=== PATIENT | female | born 1990 | race Caucasian/White ===

== ENCOUNTER 2016-10-04 18:15 | Emergency (ER) | payer MEDICAID ==
[~2016-10-04] VITALS: Ht 157.5 cm; Wt 55.0 kg
[~2016-10-04 18:15] MED LIST: FERROUS SU325 MG/TAB PO; FLINTSTONES1 CTB PO; FLONASE NASAL S16 GM NS; MOTRIN 600600 MG/TAB PO; NORCO 325 MG-51 TAB PO; PERCOCET 325 MG1 TA2 PO; PRENATAL VITAMI1 TAB PO; PROAIR HFA0.09 MG/AC IH; SALINE NASAL SP45 ML NS; ZITHROMAX Z PA250 MG PO; ZOFRAN 4MG T4 MG/TAB PO; ZOLOFT 50MG50 MG PO; ZOVIRAX400 MG PO
[2016-10-04 18:18] VITALS: TEMP 97.9
[2016-10-04 18:50] LABS: BASO % 0.2 % (0.0-2.0); EOS # 0.1 (0.0-0.7); EOS % 0.7 % (0-4.0); GRAN # 7.2 (1.4-6.5); GRAN % 72.1 % (42.2-75.2); HEMOGLOBIN 12.2 g/dl (12.5-16.0); LYMPH # 2.2 (1.2-3.4); LYMPH % 22.1 % (20.0-51.0); MEAN CELL VOLUME 84 fl (80.0-100.0); MEAN CORPUSCULAR HEMOGLOBIN 28 pg (27.0-31.0); MEAN CORPUSCULAR HGB CONC 34 g/dl (33.0-37.0); MEAN PLATELET VOLUME 11.4 fl (7.4-10.4); MONO # 0.4 (0.1-0.6); MONO % 4.4 % (1.7-9.3); PLATELET COUNT 218 K/mm3 (130-400)
[2016-10-04 18:56] LABS: HEMATOCRIT 36.3 % (37.0-47.0)
[2016-10-04 19:17] LABS: PH 6 (5-8); URINE APPEARANCE Hazy; URINE BACTERIA Rare /hpf; URINE BILIRUBIN Negative (NEGATIVE); URINE BLOOD Negative (NEGATIVE); URINE COLOR Yellow; URINE GLUCOSE 3+ (NEGATIVE); URINE KETONE Trace (NEGATIVE); URINE UROBILINOGEN Negative (NEGATIVE); URINE WBC 0-2 /hpf
[2016-10-04 19:17] LABS: ADJUSTED CALCIUM 10.1 mg/dL (8.4-10.2); ALBUMIN 3.6 gm/dL (3.5-5.0); BILIRUBIN,TOTAL 0.5 mg/dL (0.0-1.0); CALCIUM 9.8 mg/dL (8.4-10.2); CREATININE, serum 0.56 mg/dL (0.52-1.25); POTASSIUM 3.5 mmol/L (3.4-5.0); TOTAL PROTEIN 6.9 gm/dL (6.4-8.2)
[2016-10-04 20:06] VITALS: BP 130/80; PULSE 76
== END 2016-10-04 20:09 | disposition home or self-care (01) ==
LOC: COL.ER 18:15
PROVIDERS: Emergency Medicine
DX: O26.892 Other specified pregnancy related conditions, second trimester (principal); N94.89 Other specified conditions associated with female genital organs and menstrual cycle; O99.332 Smoking (tobacco) complicating pregnancy, second trimester; F17.210 Nicotine dependence, cigarettes, uncomplicated; Z3A.18 18 weeks gestation of pregnancy
CPT/HCPCS: J7030

== ENCOUNTER → 2016-10-21 | Outpatient (CLI) | payer MEDICAID ==
[~2016-10-21] MED LIST changes: +IBU600 MG PO; +MULTI VITAMINS1 TAB PO; +PULMICORT180 MCG/Ac IH
== END ==
LOC: COL.PUL 13:50
DX: R06.02 Shortness of breath (principal); Z87.09 Personal history of other diseases of the respiratory system

== ENCOUNTER 2016-12-02 20:49 | Outpatient (CLI) | payer MEDICAID ==
[~2016-12-02] VITALS: Ht 157.5 cm; Wt 57.3 kg
[~2016-12-02 20:49] MED LIST changes: -IBU600 MG PO; -MULTI VITAMINS1 TAB PO; -PULMICORT180 MCG/Ac IH
[2016-12-02] MEDS ORDERED: PROAIR HFA0.09 MG/AC IH (21:39)
[2016-12-02 21:42] VITALS: BP 108/70; PULSE 101; TEMP 97.8
[2016-12-02 21:50] VITALS: BP 104/59
[2016-12-02 23:07] LABS: BASO % 0.2 % (0.0-2.0); EOS # 0.1 (0.0-0.7); EOS % 0.9 % (0-4.0); GRAN # 7.2 (1.4-6.5); GRAN % 74.8 % (42.2-75.2); HEMATOCRIT 32.4 % (37.0-47.0); HEMOGLOBIN 10.7 g/dl (12.5-16.0); LYMPH # 1.6 (1.2-3.4); LYMPH % 16.9 % (20.0-51.0); MEAN CELL VOLUME 82 fl (80.0-100.0); MEAN CORPUSCULAR HEMOGLOBIN 27 pg (27.0-31.0); MEAN CORPUSCULAR HGB CONC 33 g/dl (33.0-37.0); MEAN PLATELET VOLUME 11.2 fl (7.4-10.4); MONO # 0.6 (0.1-0.6); MONO % 6.5 % (1.7-9.3); PLATELET COUNT 191 K/mm3 (130-400); RED BLOOD COUNT 3.93 M/mm3 (4.10-5.30); REDCELL DISTRIBUTION WIDTH-CV 13.2 % (11.5-14.5); WHITE BLOOD COUNT 9.7 K/mm3 (4.8-10.8)
[2016-12-02 23:17] LABS: ADJUSTED CALCIUM 9.1 mg/dL (8.4-10.2); ALBUMIN 3.2 gm/dL (3.5-5.0); BILIRUBIN,TOTAL 0.6 mg/dL (0.0-1.0); CALCIUM 8.5 mg/dL (8.4-10.2); CREATININE, serum 0.5 mg/dL (0.52-1.25); POTASSIUM 3.6 mmol/L (3.4-5.0); TOTAL PROTEIN 6.4 gm/dL (6.4-8.2)
== END 2016-12-03 00:15 | disposition home or self-care (01) ==
LOC: LDRO 20:49
PROVIDERS: Obstetrics & Gynecology
DX: O26.893 Other specified pregnancy related conditions, third trimester (principal); R10.12 Left upper quadrant pain; O21.0 Mild hyperemesis gravidarum; O99.333 Smoking (tobacco) complicating pregnancy, third trimester; F17.210 Nicotine dependence, cigarettes, uncomplicated; Z3A.28 28 weeks gestation of pregnancy

== ENCOUNTER 2017-01-21 13:24 | Day surgery (SDC) | payer MEDICAID ==
[~2017-01-21] VITALS: Ht 157.6 cm; Wt 62.7 kg
[2017-01-21] MEDS ORDERED: PULMICORT180 MCG/Ac IH (13:56)
[2017-01-21] MEDS ORDERED: MULTI VITAMINS1 TAB PO (13:56)
[2017-01-21 14:04] VITALS: BP 119/59; PULSE 101; TEMP 98.2
[2017-01-21 14:44] LABS: MEAN CELL VOLUME 79 fl (80.0-100.0); MEAN CORPUSCULAR HGB CONC 32 g/dl (33.0-37.0); MEAN PLATELET VOLUME 11.9 fl (7.4-10.4); PLATELET COUNT 196 K/mm3 (130-400); RED BLOOD COUNT 3.85 M/mm3 (4.10-5.30); REDCELL DISTRIBUTION WIDTH-CV 14.1 % (11.5-14.5); WHITE BLOOD COUNT 10.6 K/mm3 (4.8-10.8)
[2017-01-21 14:55] LABS: HEMATOCRIT 30.3 % (37.0-47.0); HEMOGLOBIN 9.6 g/dl (12.5-16.0); MEAN CORPUSCULAR HEMOGLOBIN 25 pg (27.0-31.0)
== END 2017-01-21 16:24 | disposition home or self-care (01) ==
LOC: COL.CAR 13:24
PROVIDERS: Internal Medicine Interventional Cardiology
DX: O99.413 Diseases of the circulatory system complicating pregnancy, third trimester (principal); Z3A.35 35 weeks gestation of pregnancy; R55 Syncope and collapse
CPT/HCPCS: C1764

== ENCOUNTER 2017-02-16 15:54 | Inpatient (IN) | payer MEDICAID ==
[~2017-02-16] VITALS: Ht 152.4 cm; Wt 63.2 kg
[~2017-02-16 15:54] MED LIST changes: +MULTI VITAMINS1 TAB PO; +PULMICORT180 MCG/Ac IH
[2017-02-24] VITALS (11 sets, daily range): BP systolic 109–140; BP diastolic 58–85; PULSE 64–89; TEMP 97.8–98.2
[2017-02-24 12:39] LABS: BASO % 0.3 % (0.0-2.0); EOS # 0.1 (0.0-0.7); EOS % 0.5 % (0-4.0); GRAN # 9.5 (1.4-6.5); GRAN % 73.6 % (42.2-75.2); LYMPH # 2.4 (1.2-3.4); LYMPH % 18.5 % (20.0-51.0); MEAN CELL VOLUME 74 fl (80.0-100.0); MEAN CORPUSCULAR HGB CONC 31 g/dl (33.0-37.0); MEAN PLATELET VOLUME 12.1 fl (7.4-10.4); MONO # 0.8 (0.1-0.6); MONO % 6.2 % (1.7-9.3); PLATELET COUNT 179 K/mm3 (130-400); RED BLOOD COUNT 4.51 M/mm3 (4.10-5.30); REDCELL DISTRIBUTION WIDTH-CV 15.5 % (11.5-14.5); WHITE BLOOD COUNT 12.9 K/mm3 (4.8-10.8)
[2017-02-24 12:48] LABS: HEMATOCRIT 33.4 % (37.0-47.0); HEMOGLOBIN 10.4 g/dl (12.5-16.0); MEAN CORPUSCULAR HEMOGLOBIN 23 pg (27.0-31.0)
[2017-02-25 06:50] LABS: HEMATOCRIT 30.3 % (37.0-47.0); HEMOGLOBIN 9.3 g/dl (12.5-16.0)
[2017-02-25 07:58] VITALS: BP 110/68; PULSE 88; TEMP 97.5
[2017-02-25] MEDS ORDERED: IBU600 MG PO (08:55)
[2017-02-25] MEDS ORDERED: PERCOCET 325 MG1 TA2 PO (08:56)
== END 2017-02-25 15:20 | disposition home or self-care (01) | DRG 775 ==
LOC: LDRO → OB 02-24 11:46 → LDR 02-24 11:51 → OB 02-24 16:00 → EDSTATUS 03-08 11:46 → LDRO 03-08 15:54
PROVIDERS: Obstetrics & Gynecology
PROC: 10E0XZZ Delivery of Products of Conception, External Approach (ICD-10-PCS; principal; 2017-02-24)
DX: O69.81X0 Labor and delivery complicated by cord around neck, without compression, not applicable or unspecified (principal); O36.0130 Maternal care for anti-D [Rh] antibodies, third trimester, not applicable or unspecified; Z3A.38 38 weeks gestation of pregnancy; Z37.0 Single live birth
CPT/HCPCS: J2590; J2791; J3010; J7120

== ENCOUNTER 2017-02-21 10:51 | Outpatient (CLI) | payer MEDICAID ==
[~2017-02-21] VITALS: Ht 157.6 cm; Wt 63.2 kg
[2017-02-21 10:55] VITALS: BP 107/62; PULSE 92; TEMP 98.2
[2017-02-21 11:27] VITALS: BP 107/62; PULSE 92; TEMP 98.2
[2017-02-21 11:33] LABS: HEMATOCRIT 30.5 % (37.0-47.0); HEMOGLOBIN 9.4 g/dl (12.5-16.0); MEAN CELL VOLUME 76 fl (80.0-100.0); MEAN CORPUSCULAR HEMOGLOBIN 23 pg (27.0-31.0); MEAN CORPUSCULAR HGB CONC 31 g/dl (33.0-37.0); PLATELET COUNT 186 K/mm3 (130-400); RED BLOOD COUNT 4.03 M/mm3 (4.10-5.30); REDCELL DISTRIBUTION WIDTH-CV 15.2 % (11.5-14.5); WHITE BLOOD COUNT 9.4 K/mm3 (4.8-10.8)
[2017-02-21 11:44] LABS: ADJUSTED CALCIUM 9.5 mg/dL (8.4-10.2); ALBUMIN 3.1 gm/dL (3.5-5.0); BILIRUBIN,TOTAL 0.5 mg/dL (0.0-1.0); CALCIUM 8.8 mg/dL (8.4-10.2); CREATININE, serum 0.51 mg/dL (0.52-1.25)
[2017-02-21 12:00] VITALS: BP 105/60; PULSE 67
[2017-02-21 12:10] LABS: PH 7 (5-8); URINE APPEARANCE Hazy; URINE BILIRUBIN Negative (NEGATIVE); URINE BLOOD Negative (NEGATIVE); URINE COLOR Yellow; URINE GLUCOSE Negative (NEGATIVE); URINE KETONE Negative (NEGATIVE); URINE RBC 0-2 /hpf; URINE UROBILINOGEN Negative (NEGATIVE)
[2017-02-21 12:15] LABS: URINE BACTERIA None Seen /hpf
[2017-02-21 12:28] VITALS: BP 101/59; PULSE 72
== END 2017-02-21 12:25 | disposition home or self-care (01) ==
LOC: LDRO 10:51
PROVIDERS: Obstetrics & Gynecology
DX: O26.893 Other specified pregnancy related conditions, third trimester (principal); R11.0 Nausea; Z3A.37 37 weeks gestation of pregnancy

== ENCOUNTER 2017-04-12 06:54 | Outpatient (CLI) | payer MEDICAID ==
[~2017-04-12] VITALS: Ht 160 cm; Wt 50.0 kg
[~2017-04-12 06:54] MED LIST changes: +IBU600 MG PO
[2017-04-12 07:15] VITALS: BP 107/73; PULSE 62; TEMP 98
[2017-04-12 09:29] VITALS: BP 109/68; PULSE 85; TEMP 98
[2017-04-13 00:25] LABS: CORTISOL 3O MINUTES 21 ug/dL (14-25)
[2017-04-13 00:26] LABS: CORTISOL BASELINE 9 ug/dL (3-20)
== END 2017-04-12 09:34 | disposition home or self-care (01) ==
LOC: EUO 06:54
PROVIDERS: Internal Medicine Interventional Cardiology
DX: R42 Dizziness and giddiness (principal)
CPT/HCPCS: J0834

== ENCOUNTER 2020-07-10 09:08 | Emergency (ER) | payer MEDICAID ==
[~2020-07-10] VITALS: Ht 160 cm; Wt 52.3 kg
[2020-07-10 09:18] VITALS: TEMP 97.7
[2020-07-10] MEDS ORDERED: LYRICA 150MG C150 MG PO (09:25)
[2020-07-10 10:17] LABS: BASO % 0.8 % (0.0-2.0); EOS # 0.2 (0.0-0.7); EOS % 3.2 % (0-4.0); GRAN # 2.5 (1.4-6.5); GRAN % 50.7 % (42.2-75.2); HEMATOCRIT 44.9 % (37.0-47.0); LYMPH # 1.9 (1.2-3.4); MEAN CELL VOLUME 89 fl (80.0-100.0); MEAN CORPUSCULAR HEMOGLOBIN 30 pg (27.0-31.0); MEAN CORPUSCULAR HGB CONC 33 g/dl (33.0-37.0); MONO # 0.3 (0.1-0.6); MONO % 6.9 % (1.7-9.3); PLATELET COUNT 204 K/mm3 (130-400); RED BLOOD COUNT 5.06 M/mm3 (4.10-5.30); REDCELL DISTRIBUTION WIDTH-CV 12.4 % (11.5-14.5)
[2020-07-10 10:45] LABS: ERYTHROCYTE SEDIMENTATION RATE 1 mm/hr (0-20)
[2020-07-10 10:46] LABS: ALBUMIN 4.2 gm/dL (3.5-5.0); BILIRUBIN,TOTAL 0.8 mg/dL (0.0-1.0); CALCIUM 9.4 mg/dL (8.4-10.2); CREATININE, serum 0.76 (0.52-1.25)
[2020-07-10 11:02] LABS: PROLACTIN 10.2 ng/mL (3.0-18.6)
[2020-07-10] MEDS ORDERED: FIORICET 325 MG1 TA1 PO (11:16)
[2020-07-10 11:17] LABS: THYROID STIMULATING HORMONE 0.894 uIU/mL (0.465-4.680)
[2020-07-10 11:27] VITALS: BP 97/49; PULSE 60
== END 2020-07-10 11:30 | disposition home or self-care (01) ==
LOC: COL.ER 09:08
PROVIDERS: Physician Assistant
DX: G43.909 Migraine, unspecified, not intractable, without status migrainosus (principal); J45.909 Unspecified asthma, uncomplicated; M79.7 Fibromyalgia; F17.210 Nicotine dependence, cigarettes, uncomplicated; Z90.49 Acquired absence of other specified parts of digestive tract; Z88.6 Allergy status to analgesic agent; Z88.8 Allergy status to other drugs, medicaments and biological substances; Z79.51 Long term (current) use of inhaled steroids
CPT/HCPCS: J1885; J2550; J7030

== ENCOUNTER 2021-03-23 18:28 | Emergency (ER) | payer MEDICAID ==
[~2021-03-23] VITALS: Ht 160 cm; Wt 44.5 kg
[~2021-03-23 18:28] MED LIST changes: +FIORICET 325 MG1 TA1 PO; +LYRICA 150MG C150 MG PO
[2021-03-23 19:34] LABS: BASO % 0.5 % (0.0-2.0); EOS # 0.1 (0.0-0.7); EOS % 0.8 % (0-4.0); GRAN # 4.7 (1.4-6.5); GRAN % 61.2 % (42.2-75.2); HEMATOCRIT 47.4 % (37.0-47.0); LYMPH # 2.4 (1.2-3.4); LYMPH % 32.1 % (20.0-51.0); MEAN CELL VOLUME 88 fl (80.0-100.0); MEAN CORPUSCULAR HEMOGLOBIN 30 pg (27.0-31.0); MEAN CORPUSCULAR HGB CONC 34 g/dl (33.0-37.0); MEAN PLATELET VOLUME 11.2 fl (7.4-10.4); MONO # 0.4 (0.1-0.6); MONO % 5.1 % (1.7-9.3); PLATELET COUNT 245 K/mm3 (130-400); RED BLOOD COUNT 5.42 M/mm3 (4.10-5.30); REDCELL DISTRIBUTION WIDTH-CV 12.2 % (11.5-14.5)
[2021-03-23 19:39] LABS: ALBUMIN 4.4 gm/dL (3.5-5.0); BILIRUBIN,TOTAL 0.4 mg/dL (0.0-1.0); CALCIUM 10.2 mg/dL (8.4-10.2); CREATININE, serum 0.64 (0.52-1.25); POTASSIUM 3.9 mmol/L (3.4-5.0); TOTAL PROTEIN 7.4 gm/dL (6.4-8.2)
[2021-03-23 20:09] LABS: TSH w REFLEX 2.07 uIU/mL (0.465-4.680)
[2021-03-23 23:04] VITALS: BP 112/88; PULSE 60; TEMP 98.7
== END 2021-03-23 23:04 | disposition home or self-care (01) ==
LOC: COL.ER 18:28
PROVIDERS: Personal Emergency Response Attendant
DX: R13.10 Dysphagia, unspecified (principal); R00.2 Palpitations; M79.7 Fibromyalgia; J45.909 Unspecified asthma, uncomplicated; G43.909 Migraine, unspecified, not intractable, without status migrainosus; F17.210 Nicotine dependence, cigarettes, uncomplicated; Z95.818 Presence of other cardiac implants and grafts; Z88.8 Allergy status to other drugs, medicaments and biological substances; Z88.6 Allergy status to analgesic agent; Z79.51 Long term (current) use of inhaled steroids
CPT/HCPCS: J7030; Q9967

== ENCOUNTER 2021-04-15 22:33 | Emergency (ER) | payer MEDICAID ==
[~2021-04-15] VITALS: Ht 160 cm; Wt 44.5 kg
[2021-04-15 22:50] VITALS: TEMP 98.1
[2021-04-15] MEDS ORDERED: EMGALITY120 MG/1 M SQ (23:54)
[2021-04-15] MEDS ORDERED: CELEBREX 200MG200 MG PO (23:54)
[2021-04-15] MEDS ORDERED: FLEXERIL5 MG PO (23:54)
[2021-04-16 00:11] LABS: BASO # 0.1 (0.0-0.2); BASO % 0.7 % (0.0-2.0); EOS # 0.1 (0.0-0.7); EOS % 1.2 % (0-4.0); GRAN # 5.6 (1.4-6.5); GRAN % 64.2 % (42.2-75.2); HEMATOCRIT 44.3 % (37.0-47.0); HEMOGLOBIN 14.7 g/dl (12.5-16.0); LYMPH # 2.3 (1.2-3.4); LYMPH % 26.9 % (20.0-51.0); MEAN CELL VOLUME 89 fl (80.0-100.0); MEAN CORPUSCULAR HEMOGLOBIN 30 pg (27.0-31.0); MEAN CORPUSCULAR HGB CONC 33 g/dl (33.0-37.0); MONO # 0.6 (0.1-0.6); MONO % 6.8 % (1.7-9.3); PLATELET COUNT 272 K/mm3 (130-400); RED BLOOD COUNT 4.97 M/mm3 (4.10-5.30); REDCELL DISTRIBUTION WIDTH-CV 12.3 % (11.5-14.5)
[2021-04-16 00:28] LABS: ALBUMIN 4.2 gm/dL (3.5-5.0); BILIRUBIN,TOTAL 0.7 mg/dL (0.0-1.0); CALCIUM 9.7 mg/dL (8.4-10.2); CREATININE, serum 0.63 (0.52-1.25); POTASSIUM 3.9 mmol/L (3.4-5.0); TOTAL PROTEIN 7.1 gm/dL (6.4-8.2)
[2021-04-16 03:36] VITALS: BP 114/70; PULSE 76
== END 2021-04-16 03:36 | disposition home or self-care (01) ==
LOC: COL.ER 22:33
PROVIDERS: Emergency Medicine
DX: R51.9 Headache, unspecified (principal); F17.210 Nicotine dependence, cigarettes, uncomplicated
CPT/HCPCS: J1100; J1200; J3360; J7030

== ENCOUNTER 2021-04-19 20:24 | Emergency (ER) | payer MEDICAID ==
[~2021-04-19] VITALS: Ht 160 cm; Wt 50.0 kg
[~2021-04-19 20:24] MED LIST changes: +CELEBREX 200MG200 MG PO; +EMGALITY120 MG/1 M SQ; +FLEXERIL5 MG PO
[2021-04-19 20:33] VITALS: TEMP 98.8
[2021-04-19 21:04] LABS: HEMATOCRIT 48.7 % (37.0-47.0); HEMOGLOBIN 16.4 g/dl (12.5-16.0); MEAN CELL VOLUME 87 fl (80.0-100.0); MEAN CORPUSCULAR HEMOGLOBIN 29 pg (27.0-31.0); MEAN CORPUSCULAR HGB CONC 34 g/dl (33.0-37.0); MEAN PLATELET VOLUME 11.1 fl (7.4-10.4); PLATELET COUNT 363 K/mm3 (130-400); RED BLOOD COUNT 5.58 M/mm3 (4.10-5.30); REDCELL DISTRIBUTION WIDTH-CV 12.3 % (11.5-14.5)
[2021-04-19 21:16] LABS: ANION GAP 13 mmol/L (7-16); BLOOD UREA NITROGEN 10 mg/dL (7-17); CALCIUM 10.3 mg/dL (8.4-10.2); CARBON DIOXIDE 21 mmol/L (22-30); CHLORIDE 106 mmol/L (98-107); CREATININE, serum 0.65 (0.52-1.25); GLUCOSE 108 mg/dL (74-106); POTASSIUM 3.8 mmol/L (3.4-5.0); SODIUM 139 mmol/L (137-145)
[2021-04-19 21:21] LABS: LYMPHOCYTE 45 % (20.0-51.0); NEUTROPHILS 48 % (42.0-75.2); PLATELET ESTIMATE NORMAL (NORMAL)
[2021-04-19 21:23] LABS: ALCOHOL(ethanol),MEDICAL < 10 mg/dL
[2021-04-19] MEDS ORDERED: ZOFRAN ODT4 MG PO (22:05)
[2021-04-19 22:15] VITALS: BP 105/67; PULSE 65
[2021-04-19 22:18] LABS: TRICYCLIC ANTIDEPRESS URINE NEGATIVE
== END 2021-04-19 22:22 | disposition home or self-care (01) ==
LOC: COL.ER 20:24
PROVIDERS: Emergency Medicine
DX: R51.9 Headache, unspecified (principal); M54.2 Cervicalgia; F17.210 Nicotine dependence, cigarettes, uncomplicated
CPT/HCPCS: J1100; J1200; J1885; J2405; J3360; J7030

== ENCOUNTER 2021-04-28 16:15 | Emergency (ER) | payer MEDICAID ==
[~2021-04-28] VITALS: Ht 160 cm; Wt 42.7 kg
[~2021-04-28 16:15] MED LIST changes: +ZOFRAN ODT4 MG PO
[2021-04-28 16:40] VITALS: BP 99/61; PULSE 135; TEMP 98
== END 2021-04-28 18:23 | disposition left against medical advice (07) ==
LOC: COL.ER 16:15
DX: R10.9 Unspecified abdominal pain (principal); Z90.710 Acquired absence of both cervix and uterus

== ENCOUNTER → 2021-05-11 | Outpatient (CLI) | payer MEDICAID | LOC: COL.CAR 09:00 | DX: Z20.822 Contact with and (suspected) exposure to COVID-19 (principal) ==

== ENCOUNTER → 2021-06-24 | Outpatient (CLI) | payer MEDICAID | LOC: MC.RAD 13:49 | DX: N64.52 Nipple discharge (principal) ==

== ENCOUNTER → 2021-12-04 | Outpatient (CLI) | payer MEDICAID | LOC: COL.RAD 09:36 | DX: N32.9 Bladder disorder, unspecified (principal); R19.09 Other intra-abdominal and pelvic swelling, mass and lump | CPT/HCPCS: Q9967 ==